=== PATIENT | male | born 1955 | race Caucasian/White ===

== ENCOUNTER 2023-10-16 16:13 | Emergency (ER) | payer BC, SELFPAY ==
[2023-10-16 16:54] VITALS: BP 168/85; PULSE 18; RESP 24; TEMP 35.9; O2SAT 96; BMI 34.2
--- NOTE | 2023-10-16 16:59 | CRLHL7_ITS ---
For Patients: As a result of the Century Cures Act, medical imaging exams and procedure reports are released immediately into your electronic medical record. You may view this report before your referring provider. If you have questions, please contact your health care provider. INDICATION: Pain and swelling TECHNIQUE: Ultrasound venous duplex lower left extremity. Compression venous exam was performed using goodwin-scale, color Doppler, and spectral Doppler analysis. COMPARISON: None FINDINGS: Sonographic imaging demonstrates the left common femoral, deep femoral, superficial femoral, popliteal, posterior tibial and greater saphenous and the contralateral right common femoral veins to be fully compressible with normal color Doppler blood flow. IMPRESSION: No convincing radiographic evidence of deep vein thrombosis within the visualized left lower extremity. Dictated by Jeremias Nolan MD @ 10/16/2023 7:29:37 PM (Electronically Signed)
--- NOTE | 2023-10-16 17:46 | ED.GENADULT ---
HPI - General Adult General Time Seen by Provider: 17:46 Date Seen: 10/16/23 Chief complaint: Extremity Pain/Injury, Lower Stated complaint: Left ankle [place] Called for US Time Seen by Provider: 10/16/23 17:41 Source: patient and RN notes reviewed Mode of arrival: ambulatory Limitations: no limitations History of Present Illness HPI narrative: This 68-year-old male was referred from his clinic in [place] for concern of possible DVT. He reportedly developed onset of left foot pain and swelling Thursday night without any known underlying injury. He had x-rays in clinic, they suggested he have an ultrasound to rule out DVT. He is also known to be diabetic. He was at ultrasound getting his images obtain when I went to see him, will see him when he comes back from ultrasound. Patient was seen on his return from ultrasound, was limping on the left leg, he states it is painful to walk on it. This awoke him sometime early Thursday morning from sleep. He has had no fevers or chills. Certain positions and ambulating on it are painful. No trauma. No history of gout. He did go to clinic today and did get x-rays, we do not have results but he states there was no concern on the x-rays. He went to his doctor in [place]. He is a long-term diabetic. Denies any numbness or tingling. No history of gout. He has not had any respiratory symptoms, no difficulty breathing, no chest pain, no shortness of breath. Patient is known to have diabetic neuropathy. Related Data Home Medications ?Medication ?Instructions ?Recorded ?Confirmed blood sugar diagnostic (Contour 10/16/23 10/16/23 Next Test Strips) carvedilol 25 mg tablet 25 mg PO BID 10/16/23 10/16/23 fenofibrate nanocrystallized 145 145 mg PO DAILY 10/16/23 10/16/23 mg tablet fluocinonide 0.05 % topical topical BID 10/16/23 solution furosemide 20 mg tablet 20 mg PO DAILY 10/16/23 10/16/23 gemfibrozil 600 mg tablet 600 mg PO BID 10/16/23 10/16/23 glimepiride 2 mg tablet 2 mg PO QAM 10/16/23 10/16/23 insulin glargine U-300 conc 300 70 unit subcut BID 10/16/23 10/16/23 unit/mL (3 mL) subcutaneous pen (Toujeo Max U-300 SoloStar) isosorbide mononitrate 30 mg 45 mg PO DAILY 10/16/23 10/16/23 tablet,extended release 24 hr lancets (Microlet Lancet) 10/16/23 10/16/23 lisinopril 10 mg tablet 10 mg PO BID 10/16/23 10/16/23 metformin 500 mg tablet 500 mg PO BID 10/16/23 10/16/23 metformin 750 mg tablet,extended 750 mg PO QPM 10/16/23 10/16/23 release 24 hr omeprazole 20 mg capsule,delayed 20 mg PO DAILY 10/16/23 10/16/23 release omeprazole 40 mg capsule,delayed 40 mg PO QAM 10/16/23 10/16/23 release pravastatin 40 mg tablet 40 mg PO DAILY 10/16/23 10/16/23 rosuvastatin 20 mg tablet 20 mg PO DAILY 10/16/23 10/16/23 semaglutide 14 mg tablet (Rybelsus) 14 mg PO DAILY 10/16/23 10/16/23 semaglutide 7 mg tablet (Rybelsus) 7 mg PO DAILY 10/16/23 10/16/23 Allergies Allergy/AdvReac Type Severity Reaction Status Date / Time banana Allergy Intermediate Anaphylaxis Verified 10/16/23 16:51 Fish Containing Products AdvReac Severe Vomiting Verified 10/16/23 16:51 gabapentin AdvReac Intermediate Unknown Verified 10/16/23 16:51 Sulfa (Sulfonamide AdvReac Intermediate Unknown Verified 10/16/23 16:51 Antibiotics) cabbage Allergy Intermediate Anaphylaxis Uncoded 10/16/23 16:51 Review of Systems Status of ROS: Reports: 6 or more systems reviewed and unremarkable except as noted in History and below [facility] Social History Smoking Status: Never smoker Do you use any of these nicotine containing products: None Second hand tobacco smoke exposure: No How often do you have a drink containing alcohol: never How often do you have six or more drinks on one occasion: Never AUDIT-C Alcohol total score: 0 Non-prescribed substance use: denies use service: No Exam Const: Vital Signs, click to edit/add: Vital Signs - 24 hr 10/16/23 16:54 Temperature 96.6 F L Pulse Rate [Pulse Oximeter] 18 L Respiratory Rate 24 Blood Pressure [Ri ght Upper Arm] 168/85 H Pulse Oximetry 96 Oxygen Delivery Me thod Room Air This 68-year-old male is alert, interactive, no apparent distress. Is limping some when he comes back from ultrasound, limping on the left leg. His boot was removed only got back into the room. He does have some generalized edema of his left lower extremity which he states is using not there, 1 to 2+ pretibial pitting. There is no erythema into the calf for the leg itself, calf is nontender. He has good peripheral pulses, there is erythema laterally over the lateral heel and below the ankle. He is tender when I palpate there. There is no joint effusion that is palpable along the ankle mortise. Some range of motion makes him hurt over that lateral foot area. Documenting provider has reviewed patient's vital signs: yes Course Course ED Course: Have reviewed with patient that I do think we should obtain some chemistries as well as a CBC. Consideration for infection, gout, other inflammatory arthropathies to be considered. We need to await the ultrasound report as well. Reevaluation(s) Time of Reevaluation #1: 19:34 Reevaluation #1: Reviewed with patient that his ultrasound showing no DVT. His labs are normal including CBC, C reactive protein, uric acid, D-dimer. We discussed my concern that I am wondering if he is developing diabetic complication of Charcot foot. I did try to look up his x-ray report but it was not in the system, he states it was at [facility]. I certainly you will not be able to see their report. Discussed at this time I see no evidence of any infection, there certainly is no indication that there is a blood clot. We discussed pain management. He does not want any narcotic pain medicines. Will have him try a cam walker and he will use that for immobilization, have stressed to him that he needs to stay off his foot. He will need podiatry follow-up. Time of Reevaluation #2: 20:02 Reevaluation #2: The cam walker absolutely made his pain worse, he really can not ambulate in it. We are going to give him crutches instead to try to offload this foot and on and keep him mobile. He understands he absolutely needs follow-up next week or return if there is increased symptoms. Vital Signs Vital signs: Initial Vital Signs Temperature 96.6 F L 10/16/23 16:54 Temperature Source Temporal Artery Scan 10/16/23 16:54 Pulse Rate 18 L 10/16/23 16:54 Respiratory Rate 24 10/16/23 16:54 Blood Pressure 168/85 H 10/16/23 16:54 Blood Pressure Mean 112 H 10/16/23 16:54 Pulse Oximetry 96 10/16/23 16:54 Oxygen Delivery Method Room Air 10/16/23 16:54 Vital Signs Temperature 96.6 F L 10/16/23 16:54 Pulse Rate 18 L 10/16/23 16:54 Respiratory Rate 24 10/16/23 16:54 Blood Pressure 168/85 H 10/16/23 16:54 Pulse Oximetry 96 10/16/23 16:54 Oxygen Delivery Method Room Air 10/16/23 16:54 Temperature 96.6 F L 10/16/23 16:54 Pulse Rate 18 L 10/16/23 16:54 Respiratory Rate 24 10/16/23 16:54 Blood Pressure 168/85 H 10/16/23 16:54 Pulse Oximetry 96 10/16/23 16:54 Oxygen Delivery Method Room Air 10/16/23 16:54 Medical Decision Making Lab Data Lab results reviewed: Yes I reviewed the patient's lab results Labs: Lab Results 10/16/23 Range/Units 18:30 WBC 5.62 (4.50-11.00) K/uL RBC 4.33 (4.30-5.90) m/uL Hgb 13.7 (13.5-17.5) gm/dL Hct 39.6 (37.0-53.0) % MCV 92 (80-100) fL MCH 32 (26-34) pg MCHC 35 (32-36) gm/dL RDW Coeff of Marcella 13.0 (11.5-15.5) % Plt Count 220 (140-440) K/uL Neut % (Auto) 57.9 (42.0-72.0) % Lymph % (Auto) 28.8 (20-44) % [place] % (Auto) 9.6 (0.0-11.0) % Eos % (Auto) 2.8 (0.0-7.0) % Baso % (Auto) 0.7 (0.0-3.0) % Neut # (Auto) 3.25 (1.7-7.0) K/uL Lymph # (Auto) 1.62 (0.90-2.90) K/uL [place] # (Auto) 0.50 (0.00-0.90) K/UL Eos # (Auto) 0.16 (0.00-0.50) K/uL Baso # (Auto) 0.04 (0.00-0.30) K/uL Abs Immat Gran (auto) 0.01 (0.00-0.30) K/uL Imm/Tot Granulo (auto) 0.2 % D-Dimer Quant (PE/DVT) 0.29 (0.00-0.50) ug/ml Sodium 140 (135-149) mmol/L Potassium 4.4 (3.6-5.1) mmol/L Chloride 109 (96-114) mmol/L Carbon Dioxide 25 (20-32) mmol/L Anion Gap 6 L (7-15) mEq/L BUN 22 (7-30) mg/dL Creatinine 1.1 (0.5-1.5) mg/dL Estimated Creat Clear 61.32 Estimated GFR 73 ml/min Glucose 159 H (60-115) mg/dL Lactate 0.9 (0.5-1.9) mmol/L Uric Acid 7.6 (2.2-8.4) mg/dL Calcium 9.1 (8.4-10.6) mg/dL C-Reactive Protein < 0.5 L (0.5-1.0) mg/dL Imaging Data Venous US: Attestation: I have reviewed the pertinent imaging results. Radiologist's impression: Patient: MITCHEL SANFORD Facility:?[facility] Patient ID:?[id number] Site Patient ID:?[id number]. Site :?[id number] Study:?US-Extremity Left LEV LT-10/16/2023 6:09:04 PM Ordering Physician:Spenser Harmon Final Report: INDICATION: Pain and swelling TECHNIQUE: Ultrasound venous duplex lower left extremity. Compression venous exam was performed using goodwin-scale, color Doppler, and spectral Doppler analysis. COMPARISON: None FINDINGS: Sonographic imaging demonstrates the left common femoral, deep femoral, superficial femoral, popliteal, posterior tibial and greater saphenous and the contralateral right common femoral veins to be fully compressible with normal color Doppler blood flow. IMPRESSION: No convincing radiographic evidence of deep vein thrombosis within the visualized left lower extremity. Dictated by Jeremias Nolan MD @ 10/16/2023 7:29:37 PM (Electronic Signature) Discharge Plan Discharge Clinical Impression: Acute pain of left foot Patient Disposition: Home, Self-Care Condition: Stable Instructions: Diabetic Neuropathy (ED) Additional Instructions: I do wonder if you are developing complication in this foot from degeneration due to the diabetic neuropathy called Charcot foot. You need to try to staff this foot, can use Tylenol per bottle directions. There is no evidence of blood clot, uric acid was normal, white blood count was normal, inflammatory markers were normal. 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 In the meantime, if something changes like development of fever, there is significant increase in redness or swelling, have further concerns, return for further evaluation. Prescriptions: No Action metformin 500 mg tablet 500 mg PO BID carvedilol 25 mg tablet 25 mg PO BID pravastatin 40 mg tablet 40 mg PO DAILY isosorbide mononitrate 30 mg tablet extended release 24 hr 45 mg PO DAILY (DME) Contour Next Test Strips Strip MISCELLANEOUS 3XD omeprazole 40 mg capsule,delayed release(DR/EC) 40 mg PO QAM glimepiride 2 mg tablet 2 mg PO QAM (DME) lancets [Microlet Lancet] Misc MISCELLANEOUS 3XD gemfibrozil 600 mg tablet 600 mg PO BID lisinopril 10 mg tablet 10 mg PO BID omeprazole 20 mg capsule,delayed release(DR/EC) 20 mg PO DAILY furosemide 20 mg tablet 20 mg PO DAILY fluocinonide 0.05 % solution topical BID metformin 750 mg tablet extended release 24 hr 750 mg PO QPM rosuvastatin 20 mg tablet 20 mg PO DAILY fenofibrate nanocrystallized 145 mg tablet 145 mg PO DAILY insulin glargine U-300 conc [Toujeo Max U-300 SoloStar] 300 unit/mL (3 mL) insulin pen 70 unit subcut BID Rybelsus 7 mg tablet 7 mg PO DAILY Rybelsus 14 mg tablet 14 mg PO DAILY Follow Up/Referrals: Provider,Not a Local [Primary Care Provider] - Stand Alone Forms: MyHealth Info Instructions
[2023-10-16 18:35] LABS: Lactate* 0.9 mmol/L (0.5-1.9)
[2023-10-16 18:38] LABS: Basophils Absolute Auto 0.04 K/uL (0.00-0.30); Basophils Percent Auto 0.7 % (0.0-3.0); Eosinophils Absolute Auto 0.16 K/uL (0.00-0.50); Eosinophils Percent Auto 2.8 % (0.0-7.0); Hematocrit 39.6 % (37.0-53.0); Hemoglobin* 13.7 gm/dL (13.5-17.5); Immature Granulocytes Abs Auto 0.01 K/uL (0.00-0.30); Immature Granulocytes Pct Auto 0.2 %; Lymphocytes Absolute Auto 1.62 K/uL (0.90-2.90); Lymphocytes Percent Auto 28.8 % (20-44); Mean Corpuscular HGB Conc 35 gm/dL (32-36); Mean Corpuscular Hemoglobin 32 pg (26-34); Mean Corpuscular Volume 92 fL (80-100); Monocytes Percent Auto 9.6 % (0.0-11.0); Neutrophils Absolute Auto 3.25 K/uL (1.7-7.0); Neutrophils Percent Auto 57.9 % (42.0-72.0); Platelet Count* 220 K/uL (140-440); Red Blood Count 4.33 m/uL (4.30-5.90); White Blood Count* 5.62 K/uL (4.50-11.00)
[2023-10-16 18:44] LABS: Slide Review Reflex No
[2023-10-16 19:01] LABS: Chloride* 109 mmol/L (96-114); Sodium* 140 mmol/L (135-149)
[2023-10-16 19:02] LABS: D Dimer Quantitative* 0.29 ug/ml (0.00-0.50); Potassium* 4.4 mmol/L (3.6-5.1)
[2023-10-16 19:04] LABS: Creatinine* 1.1 mg/dL (0.5-1.5); Est. Creatinine Clearance* 61.32; Estimated Glomerular Filt Rate 73 ml/min
[2023-10-16 19:05] LABS: Anion Gap 6 mEq/L (7-15); Blood Urea Nitrogen* 22 mg/dL (7-30); Calcium* 9.1 mg/dL (8.4-10.6); Carbon Dioxide* 25 mmol/L (20-32); Glucose* 159 mg/dL (60-115); Uric Acid* 7.6 mg/dL (2.2-8.4)
[2023-10-16 19:13] LABS: C Reactive Protein* < 0.5 mg/dL (0.5-1.0)
== END 2023-10-16 20:11 | disposition home or self-care (01) ==
PROVIDERS: Emergency Provider Family Medicine
DX: M79.672 Pain in left foot (principal)
CPT/HCPCS: 36415; 80048; 83605; 84550; 85025; 85379; 86140; 93971; 99283